=== PATIENT | female | born 1955 | race Caucasian/White ===

== ENCOUNTER 2018-05-05 22:41 | Emergency (ER) | payer BC ==
[2018-05-05] MEDS ORDERED: fentaNYL 100 MCG/2 ML SDV NASBOTH ONE (23:17)
--- NOTE | 2018-05-05 23:22 | EDM.PDOC ---
ED HPI GENERAL MEDICAL PROBLEM - General Chief Complaint: Upper Extremity Injury/Pain Stated Complaint: LEFT WRIST/LEG Time Seen by Provider: 05/05/18 23:12 Source of Information: Reports: Patient, RN Notes Reviewed History Limitations: Reports: No Limitations - History of Present Illness INITIAL COMMENTS - FREE TEXT/NARRATIVE: Here with her Chief complaint Fall with injury to left wrist History of present illness 62-year-old female, slipped on wet dock [place] 9 PM, about 2 hours ago landing with full weight on left wrist. Also sustained some scrapes to the outside of her left thigh. Limited motion left wrist with considerable pain. Took ibuprofen 800 mg shortly after the fall. 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, lives in [place] Left Wrist Pain Score (Numeric/FACES): 7 - Related Data Allergies Allergy/AdvReac Type Severity Reaction Status Date / Time No Known Allergies Allergy Verified 05/05/18 22:56 Home Meds: Home Meds DULoxetine [Cymbalta] 30 mg PO DAILY 12/08/13 [History] Gabapentin [Neurontin] 300 mg PO BID 12/08/13 [History] Ibuprofen [Motrin] 800 mg PO BIDM PRN 12/08/13 [History] Hydrocodone/Acetaminophen [Hydrocodon-Acetaminophen 5-325] 1 - 2 each PO Q4H PRN #12 tablet 05/06/18 [Rx] Past Medical History HEENT History: Reports: Impaired Vision Cardiovascular History: Reports: Other (See Below) Other Cardiovascular History: 'heart virus' years ago Gastrointestinal History: Reports: Chronic Diarrhea [employer] History: Reports: Musculoskeletal History: Reports: Fibromyalgia Neurological History: Reports: Brain Injury, Concussion Psychiatric History: Reports: Panic Attack Hematologic History: Reports: Anemia, Blood Transfusion(s) Oncologic (Cancer) History: Reports: Colon - Infectious Disease History Infectious Disease History: Reports: Chicken Pox, Measles, Mumps - Past Surgical History GI Surgical History: Reports: Appendectomy, Cholecystectomy, Colon, Colonoscopy Female Surgical History: Reports: Oophorectomy Social & Family History - Tobacco Use Smoking Status *Q: Never Smoker - Caffeine Use Caffeine Use: Reports: Coffee - Recreational Drug Use Recreational Drug Use: No Review of Systems - Review of Systems Review Of Systems: See Below Constitutional: Reports: No Symptoms Eyes: Reports: No Symptoms Ears: Reports: No Symptoms Nose: Reports: No Symptoms Mouth/Throat: Reports: No Symptoms Respiratory: Reports: No Symptoms GI/Abdominal: Reports: No Symptoms Musculoskeletal: Reports: Arm Pain (Left wrist with limited range of motion and some swelling), Leg Pain (Lateral aspect left thigh where there are some abrasions, no limitation in walking however) Skin: Reports: Wound (Very light scrapes lateral aspect left thigh) Neurological: Reports: No Symptoms Psychiatric: Reports: No Symptoms ED EXAM, GENERAL - Physical Exam Exam: See Below Exam Limited By: No Limitations General Appearance: Alert, Mild Distress, Other (Tired and somewhat distracted, Elevated blood pressure but other vital signs normal, no difficulty speaking or breathing) Eye Exam: Bilateral Eye: Normal Inspection Ears: Normal External Exam, Hearing Grossly Normal Nose: Normal Inspection Throat/Mouth: Normal Inspection Neck: Supple, Non-Tender Respiratory/Chest: No Respiratory Distress, No Accessory Muscle Use Cardiovascular: Normal Peripheral Pulses, Regular Rate, Rhythm Extremities: Joint Swelling (Left wrist with decreased range of motion and slight deformity), Other (Superficial abrasions barely breaking the skin lateral aspect left thigh) Neurological: Alert, Oriented, No Motor/Sensory Deficits Skin Exam: Warm, Dry, Intact, Normal Color, No Rash ED TRAUMA EXTREMITY PROCEDURES - Splinting Left Upper Extremity Pre-Procedure NV Status: Normal Post-Procedure NV Status: Normal Splint Material: Other (orthoglas) Splint Design: Sugar Tong Applied & Form Fitted By: Provider Provider Post-Splint Application NV Check: NV Status Normal Complications: No Course - Vital Signs Last Recorded V/S: Last Vital Signs Temp 36.6 C 05/05/18 22:58 Pulse 63 05/05/18 22:58 Resp 18 05/05/18 22:58 BP 154/72 H 05/05/18 22:58 Pulse Ox 97 05/05/18 22:58 - Orders/Labs/Meds Orders: Active Orders 24 hr Category Date Time Status Orthopedic Treatments [RC] ASDIRECTED Care 05/06/18 00:34 Ordered Wrist Comp Min 3V Lt [CR] Stat Exams 05/05/18 23:17 Taken Meds: Medications Discontinued Medications Generic Name Dose Route Start Last Admin Trade Name Freq PRN Reason Stop Dose Admin Hydrocodone Bitart/Acetaminophen 1 tab 05/06/18 00:34 [place] 325-5 Mg PO 05/06/18 00:35 ONETIME ONE Fentanyl 100 mcg 05/05/18 23:17 05/05/18 23:34 Sublimaze NASBOTH 05/05/18 23:18 100 mcg ONETIME ONE Administration - Re-Assessments/Exams Free Text/Narrative Re-Assessment/Exam: 05/05/18 23:21 62-year-old female with a fall, minor injuries to left thigh but she has pain deformity and swelling left wrist, suspect fracture Fentanyl 100 g intranasal for pain X-rays left wrist 05/06/18 00:35 Comminuted fracture of the distal radius involving the joint, not easily reducible Will need orthopedic follow-up Sugar tong splint applied Hydrocodone/acetaminophen 5/325, 1 tablet by mouth Sling Departure - Departure Time of Disposition: 00:36 Disposition: Home, Self-Care 01 Condition: Good Clinical Impression: Fracture of radius Qualifiers: Encounter type: initial encounter Radius location: distal Fracture type: closed Fracture morphology: unspecified fracture morphology Laterality: left Qualified Code(s): S52.502A - Unspecified fracture of the lower end of left radius, initial encounter for closed fracture - Discharge Information Prescriptions: Hydrocodone/Acetaminophen [Hydrocodon-Acetaminophen 5-325] 1 - 2 each PO Q4H PRN #12 tablet PRN Reason: Moderate to severe pain Instructions: Wrist Fracture Treated With Immobilization, [id number] Referrals: PCP,None [Primary Care Provider] - Forms: ED Department Discharge Additional Instructions: You have a comminuted fracture of the distal left radius. This means a bone has many pieces and involves the joint space. Follow-up with orthopedic surgeon within 1 week is recommended to discuss further treatment of the wrist. Keeping her arm elevated to reduce pain Take pain medication as needed. - My Orders Last 24 Hours: My Active Orders 05/05/18 23:17 Wrist Comp Min 3V Lt [CR] Stat 05/06/18 00:34 Orthopedic Treatments [RC] ASDIRECTED - Assessment/Plan Last 24 Hours: My Active Orders 05/05/18 23:17 Wrist Comp Min 3V Lt [CR] Stat 05/06/18 00:34 Orthopedic Treatments [RC] ASDIRECTED
[2018-05-06] MEDS ORDERED: Acetaminophen/HYDROcodone 325-5 MG Tab PO ONE (00:34)
--- NOTE | 2018-05-06 09:29 | CR ---
Wrist Comp Min 3V Lt INDICATION: fall deformity COMPARISON: None FINDINGS: 3 views. Comminuted intra-articular fracture distal radius, with dorsal angulation of th e distal fracture fragment. Ulna appears intact.
== END 2018-05-06 01:19 | disposition home or self-care (01) ==
LOC: JP.ED 22:41
DX: S52.502A Unspecified fracture of the lower end of left radius, initial encounter for closed fracture (principal); S70.312A Abrasion, left thigh, initial encounter; W01.0XXA Fall on same level from slipping, tripping and stumbling without subsequent striking against object, initial encounter
CPT/HCPCS: 29125; 73110; 99284; A9270; J3010

== ENCOUNTER 2018-05-06 12:05 | Day surgery (SDC) | payer BC ==
[2018-05-06] MEDS ORDERED: Bupivacaine 0.5%/EPINEPHrine 1:200,000 50 ML MDV ONE (12:13)
[2018-05-06] MEDS ORDERED: Povidone-Iodine 10% Soln 118.25 ML Bottle ONE (12:13)
[2018-05-06] MEDS ORDERED: Rocuronium 50 MG/5 ML Vial ONE (12:26)
[2018-05-06] MEDS ORDERED: fentaNYL 250 MCG/5 ML SDV ONE (12:26)
[2018-05-06] MEDS ORDERED: Neostigmine Methylsulfate 1 MG/ML 5 ML Syringe ONE (12:26)
[2018-05-06] MEDS ORDERED: Glycopyrrolate 0.2 MG/ML 5 ML MDV ONE (12:26)
[2018-05-06] MEDS ORDERED: Midazolam 1 MG/ML 2 ML SDV ONE (12:26)
[2018-05-06] MEDS ORDERED: Ondansetron 4 MG/2 ML SDV ONE (12:26)
[2018-05-06] MEDS ORDERED: Succinylcholine 200 MG/10 ML MDV ONE (12:26)
[2018-05-06] MEDS ORDERED: Dexamethasone 4 MG/ML SDV ONE (12:26)
[2018-05-06] MEDS ORDERED: Propofol 200 MG/20 ML SDV ONE (12:26)
[2018-05-06] MEDS ORDERED: Dexamethasone 4 MG/ML 5 ML MDV ONE (12:37)
[2018-05-06] MEDS ORDERED: Bupivacaine 0.5% 50 ML MDV ONE (12:37)
[2018-05-06] MEDS ORDERED: ceFAZolin 2 GM in Premix Bag 1 BAG IV ONE (13:00)
[2018-05-06] MEDS ORDERED: Lactated Ringers 1,000 ML IV SCH (13:00)
--- NOTE | 2018-05-06 14:36 | CR ---
Fluoro Over 1Hr wo Rad INDICATION: left orif-room #2 COMPARISON: Prior studies FINDINGS: 2 C-arm images show excellent alignment and ORIF distal radius fracture.
[2018-05-06] MEDS ORDERED: hydrOXYzine HCl 100 MG/2 ML SDV IM ONE (14:45)
[2018-05-06] MEDS ORDERED: fentaNYL 100 MCG/2 ML SDV IVPUSH ONE (14:45)
[2018-05-06] MEDS ORDERED: Acetaminophen/oxyCODONE 325-5 MG Tab PO PRN (15:15)
--- NOTE | 2018-05-06 16:46 | OR ---
DATE OF PROCEDURE: 05/06/2018 PREOPERATIVE DIAGNOSES: 1. Acute carpal tunnel syndrome, left wrist. 2. Left distal radius fracture. POSTOPERATIVE DIAGNOSES: 1. Acute carpal tunnel syndrome, left wrist. 2. Left distal radius fracture. PROCEDURES: 1. Left carpal tunnel release. 2. Open reduction and internal fixation of left distal radius extra-articular. 3. Application of short-arm splint. ANESTHESIA: General endotracheal intubation. FLUID: Lactated Ringer solution. ESTIMATED BLOOD LOSS: 25 mL. COMPLICATIONS: None. SPECIMEN: None. DISCHARGE DISPOSITION: Stable to PACU. HISTORY AND INDICATIONS FOR THE PROCEDURE: The patient was seen this morning. I had examined radiographs and asked my staff to call. She was having symptoms of carpal tunnel syndrome. She had been seen in the ER late yesterday evening. The wrist has not been reduced. Judging by the radiographs, I had a high suspicion for carpal tunnel syndrome. She then came to the hospital and was then directly admitted to the ACU. Risks and benefits of the procedure were explained to the patient and her . Informed consent was obtained. DETAILS OF PROCEDURE: The patient was seen preoperatively by myself and the Anesthesia staff in the preoperative holding area, where the operative site was marked. She was brought to the operative suite by Anesthesia staff, where general anesthesia was administered. All extremities were found to be well padded and tourniquet was placed on the left arm. The left upper extremity was then prepped and draped in a sterile manner. Time- out was called after the correct patient, the correct procedure, the correct site, and antibiotics had been with appropriate period of time. A sterilely draped fluoroscopy unit was then brought in. I reduced the wrist and confirmed good reduction on fluoroscopy. I then used an Esmarch to exsanguinate the left upper extremity. Tourniquet was raised to 250 mmHg. I then performed a left carpal tunnel release by making an incision in line with the first ray and then in line with the radial border of the fourth digit, extending about 2 cm. I carried this down to the transverse carpal ligament, used a self-retaining retractor. I then went through the transverse carpal ligament. The median nerve was considerably swollen. I then used Ragnell under direct visualization, released the deep palmar fascia proximally and distally. I then irrigated, placed Decadron and then closed that incision with 3-0 nylon horizontal mattresses. After this had been accomplished, I then focused on the distal radius incision, I made an incision with a #10 blade over the flexor carpi radialis tendon and then used Weitlaner to retract it radially to protect the radial artery and then went through the dorsal aspect of the muscle sheath. I then exposed the pronator and then made an incision through down onto the distal radius and then exposed the distal radius using elevator. The fracture was fairly well reduced from my initial reduction. I then used a small plate and then placed my screw through my slotted hole and then used the fluoroscopy to get my plate where I wanted it and then placed my styloid screws followed by the proximal row and distal row. I then placed my other 2 cortical screws. I confirmed good placement on AP and lateral fluoroscopy. I then copiously irrigated with saline and then closed subcutaneously with 3-0 Vicryl followed by 3-0 nylon in horizontal mattress manner, and then after that had been accomplished, I placed Betadine-soaked Adaptic over the incisions followed by sterile 4x4s, followed by Webril, followed by fiberglass splint. After this had been accomplished, the patient was allowed to awaken and taken to the PACU in stable condition. Please note that prior to closure, I did let down the tourniquet and controlled bleeders with bipolar as well as Bovie electrocautery. David Grimm DO /[id number]
== END 2018-05-06 16:38 | disposition home or self-care (01) ==
LOC: JP.SDS 12:05
PROVIDERS: ATTEND Orthopaedic Surgery
DX: G56.02 Carpal tunnel syndrome, left upper limb (principal); S52.552A Other extraarticular fracture of lower end of left radius, initial encounter for closed fracture; Z79.899 Other long term (current) drug therapy
CPT/HCPCS: 25607; 36415; 64721; 76001; 85027; 93005; A9270; C1713; J0330; J0690; J1100; J2250; J2405; J2704; J3010; J3410; J7120; J2710

== ENCOUNTER 2019-03-25 07:30 | Day surgery (SDC) | payer BC ==
[~2019-03-25 07:30] MED LIST: Bupivacaine 0.5% 50 ML MDV ONE; Lidocaine 1% with EPINEPHrine 1:100,000 50 ML MDV ONE
[2019-03-25] MEDS ORDERED: Propofol 200 MG/20 ML SDV ONE (07:42)
[2019-03-25] MEDS ORDERED: Midazolam 1 MG/ML 2 ML SDV ONE (07:42)
[2019-03-25] MEDS ORDERED: fentaNYL 100 MCG/2 ML SDV ONE (07:42)
[2019-03-25] MEDS: Lactated Ringers 1,000 ML IV SCH (08:04)
--- NOTE | 2019-03-29 08:00 | OR ---
DATE OF PROCEDURE: 03/25/2019 PREOPERATIVE DIAGNOSIS: History of colon cancer. POSTOPERATIVE DIAGNOSES: Diverticulosis, small transverse colon polyp, history of colon cancer. PROCEDURE PERFORMED: Colonoscopy to the anastomosis with biopsy resection of small transverse colon polyp. SURGEON: Andrea Wolfe MD ANESTHESIA: IV anesthesia with monitored anesthesia care. INDICATION: This 63-year-old white female is here for a colonoscopy. In 2002, she had a right hemicolectomy for colon cancer. She has had no evidence of disease since. Her last colonoscopic exam was done 5 years ago. I counseled her for the procedure, including risks and alternatives, and she gave her informed consent to proceed. DESCRIPTION OF PROCEDURE: The patient was placed in the left lateral decubitus position. IV anesthesia was administered by the Anesthesia Service. Time-out was held. A rectal exam was performed, which was unremarkable. The flexible video Olympus colonoscope was introduced through her anus, up her rectum and out her colon, all the way to the anastomosis. En route, we saw multiple left-sided diverticula. Also, in the transverse colon remnant, we saw a small polyp, which was removed with a couple of bites of the biopsy forceps. Once the anastomosis was reached, the scope was slowly withdrawn examining the mucosa throughout. No additional mucosal abnormalities were noted. The scope was retroflexed in the rectum with the distal rectum appearing unremarkable. The scope was straightened and removed. She tolerated the procedure well. Andrea Wolfe MD /[id number] MTDD
== END 2019-03-25 10:50 | disposition home or self-care (01) ==
LOC: JP.SDS 07:30
PROVIDERS: ATTEND Surgery
DX: Z12.11 Encounter for screening for malignant neoplasm of colon (principal); D12.3 Benign neoplasm of transverse colon; K57.30 Diverticulosis of large intestine without perforation or abscess without bleeding; Z85.038 Personal history of other malignant neoplasm of large intestine; F32.9 Major depressive disorder, single episode, unspecified; F41.9 Anxiety disorder, unspecified
CPT/HCPCS: 88305; J2250; J2704; J3010; J3490; J7120

== ENCOUNTER 2021-05-02 09:59 | Day surgery (SDC) | payer OTHER ==
[~2021-05-02 09:59] MED LIST changes: -Bupivacaine 0.5% 50 ML MDV ONE; -Lidocaine 1% with EPINEPHrine 1:100,000 50 ML MDV ONE; +Midazolam 1 MG/ML 2 ML SDV ONE; +Propofol 200 MG/20 ML SDV ONE; +fentaNYL 100 MCG/2 ML SDV ONE
[2021-05-02] MEDS ORDERED: Sodium Chloride 0.9% 1,000 ML IV SCH (10:30)
--- NOTE | 2021-05-02 14:10 | OR ---
DATE OF PROCEDURE: 05/02/2021 SURGEON: Enoc Easton MD PROCEDURE: 1. EGD. 2. Colonoscopy. FINDINGS: 1. Inflammation at the GE junction concerning for reflux disease (biopsied in all 4 quadrants using cold biopsy forceps). 2. A small gastric polyp, completely removed using cold biopsy forceps. 3. Diverticulosis, mostly limited to sigmoid colon. 4. No definitive etiology for anemia, although diverticulosis could be a source, but there was no active bleeding at that time. 5. Normal ileocolonic anastomosis without evidence of recurrence or bleeding. RISKS: Risks, benefits, alternatives, and limitations including, but not limited to infection, bleeding, perforation, false positives, false negatives were explained to the patient who wished to proceed. PREOPERATIVE DIAGNOSIS: Anemia. POSTOPERATIVE DIAGNOSIS: Anemia. PROCEDURE IN DETAIL: The patient was placed in left lateral decubitus position. The EGD scope was introduced and advanced atraumatically to the second part of the duodenum. No evidence of duodenitis or ulceration was noted. No blood. Within the stomach itself, the patient had a small benign-appearing polyp. This was completely removed using cold biopsy forceps. No abnormalities on retroflexion. The GE junction showed some mild inflammation at Z-line. This was biopsied in all 4 quadrants using cold biopsy forceps. The air was removed from the stomach. The remainder of esophagus was inspected without abnormality. Digital rectal exam was performed next. Scope was introduced and advanced atraumatically to the ileocecal valve. A photo was taken of this. The scope was brought back to the ascending, transverse, descending colon, and retroflexed. The anastomosis appeared benign in nature. There was no evidence of old or new blood or any areas of concern. There was no inflammation noted at the anastomosis. The remainder of the colon was without blood or abnormality except for diverticulosis that would be described as mild, limited to sigmoid colon without evidence of diverticulitis or bleeding. No abnormalities on retroflexion. Greater than 8 minutes was spent removing the scope. The prep was acceptable, approximately 90% luminal surface could be seen. The patient tolerated the procedure well. Enoc Easton MD /[id number]
== END 2021-05-02 13:30 | disposition home or self-care (01) ==
LOC: JP.SDS 09:59
PROVIDERS: ATTEND Surgery
DX: K57.30 Diverticulosis of large intestine without perforation or abscess without bleeding (principal); K31.7 Polyp of stomach and duodenum; K21.00 Gastro-esophageal reflux disease with esophagitis, without bleeding; D64.9 Anemia, unspecified; E78.5 Hyperlipidemia, unspecified; Z80.0 Family history of malignant neoplasm of digestive organs; Z85.038 Personal history of other malignant neoplasm of large intestine; Z98.0 Intestinal bypass and anastomosis status
CPT/HCPCS: 43239; 45378; J2250; J2704; J3010; J7030

== ENCOUNTER 2023-04-07 10:37 | Emergency (ER) | payer MEDICARE, OTHER ==
[2023-04-07 11:31] LABS: HEMATOCRIT 38.5 % (34.3-46.0); HEMOGLOBIN 12.7 g/dL (11.2-15.5); MEAN CORPUSCULAR HEMOGLOBIN 30.8 pg (31.6-35.5); MEAN CORPUSCULAR VOLUME 93.2 fL (81.4-99.0); RED BLOOD CELL COUNT 4.13 M/uL (3.77-5.24); WHITE BLOOD CELL COUNT,WBC 4.8 K/uL (3.2-11.0)
[2023-04-07 11:32] LABS: BASE EXCESS VENOUS 3.3 mm/L; BICARBONATE,VENOUS 28.2 mmol/L; CARBOXYHEMOGLOBIN 2.1 % (0.0-1.6); METHEMOGLOBIN 0.9 %; O2 SATURATION VENOUS 48.9; OXYHEMOGLOBIN 47.4 %; PCO2 VENOUS 45.9 mm/Hg; PH,VENOUS 7.405 (7.350-7.450); TOTAL HEMOGLOBIN 13.2 g/dL (12.0-16.0)
[2023-04-07 11:33] LABS: PO2 VENOUS 30.3 mm/Hg
[2023-04-07 11:49] LABS: PROTHROMBIN TIME 10.3 sec (9.2-10.6)
[2023-04-07 12:01] LABS: ALANINE AMINOTRANSFERASE,ALT 28 U/L (12-78); ALBUMIN 3.4 g/dL (3.4-5.0); ALKALINE PHOSPHATASE 74 U/L (46-116); ASPARTATE AMNIOTRANSFERASE,AST 25 U/L (15-37); BILIRUBIN TOTAL 0.6 mg/dL (0.2-1.0); BLOOD UREA NITROGEN,BUN 18 mg/dL (7-18); CALCIUM 9.1 mg/dL (8.5-10.1); CARBON DIOXIDE,CO2 30 mmol/L (21-32); CHLORIDE,CL 104 mmol/L (100-108); EST CRCL DRUG DOSING (CG) 53.81 mL/min; ESTIMATED GFR 62 mL/min (>60); GLUCOSE RANDOM 113 mg/dL (74-106); POTASSIUM,K 4.5 mmol/L (3.6-5.2); PRO B-TYPE NATRIUR PEPT,BNPPRO 10 pg/mL (5-125); PROTEIN TOTAL,TP 6.9 g/dL (6.4-8.2); SODIUM,NA 139 mmol/L (140-148)
[2023-04-07 12:02] LABS: ANION GAP 9.5 mmol/L (5.0-14.0)
== END 2023-04-07 13:05 | disposition home or self-care (01) ==
LOC: JP.ED 10:37
DX: F41.9 Anxiety disorder, unspecified (principal)
CPT/HCPCS: 36415; 71045; 71045-26; 80053; 82803; 83605; 83880; 84484; 85027; 85379; 85610; 99285